=== PATIENT | female | born 1995 | race Asian ===

== ENCOUNTER 2017-11-04 05:36 | Inpatient (IN) | payer OTHER ==
[2017-11-04 07:00] LABS: HEMATOCRIT 42.3 % (36.0-47.0); HEMOGLOBIN 14.4 g/dl (12.0-16.0); MEAN CORPUSCULAR HEMOGLOBIN 28.6 pg (27.0-33.0); MEAN CORPUSCULAR VOLUME 84.1 fl (80.0-96.0); PLATELET COUNT, AUTOMATED 328 10^3/uL (150-450); RED BLOOD COUNT 5.03 10^6/uL (4.00-5.40); WHITE BLOOD COUNT 18.3 10^3/uL (4.0-10.0)
[2017-11-04] MEDS: LACTATED RINGER'S 1000 ML IV (08:00)
[2017-11-04] MEDS ORDERED: LR 1,000 ML IV (08:00)
[2017-11-04] MEDS ORDERED: FENTANYL 2MCG/ML ROPIVACAINE 0.2% IN 0.9% NACL 200ML IVBAG As Ordered (08:07)
[2017-11-04] MEDS: FENTANYL/ROPIVACAINE/NACL BAG 200 ML EPIDURAL (09:30)
[2017-11-04] MEDS ORDERED: NALOXONE INJ 0.4 MG/1 ML VIAL (J2310) IV (09:30)
[2017-11-04] MEDS ORDERED: EPIDURAL COMMENT XX (09:30)
[2017-11-04] MEDS ORDERED: REFRIGERATOR IV KEYS XX (09:30)
[2017-11-04] MEDS ORDERED: ONDANSETRON 4MG/2ML VIAL (J2405) IV (09:30)
[2017-11-04] MEDS ORDERED: diphenhydrAMINE INJ 50MG/ML VIAL (J1200) IV (09:30)
[2017-11-04] MEDS ORDERED: EPIDURAL/PCA KEYS XX (09:30)
[2017-11-04] MEDS: ePHEDrine SULFATE 25 MG/5 ML(5MG/ML) SYRINGE IV (09:52)
[2017-11-04] MEDS ORDERED: OXYTOCIN 30 UNITS IN 0.9% NaCl 500ML IV BAG (J2590) As Ordered (12:26)
[2017-11-04] MEDS: OXYTOCIN DRIP 30 UNITS in APPROPRIATE DILUENT 1 EA IV (13:52)
[2017-11-04] MEDS: RHOGAM 300 MCG (1500 IU) INJ (J2790) IM (15:58)
[2017-11-04] MEDS: MEASLES,MUMPS,RUBELLA VACCINE INJ (MMR-II) (90707) SC (15:59)
[2017-11-04] MEDS: DOCUSATE SODIUM 100 MG CAP PO (20:16)
[2017-11-05] MEDS: DOCUSATE SODIUM 100 MG CAP PO ×2 (09:35→21:54)
[2017-11-05] MEDS: PRENATAL VITAMINS CHEWABLE TABLET PO (09:35)
[2017-11-05] MEDS: MIRALAX *UNIT DOSE* 17GM PACKET PO (09:35)
[2017-11-05] MEDS: IBUPROFEN 800 MG TAB PO ×2 (09:38→21:55)
[2017-11-05] MEDS: ACETAMINOPHEN 500 MG TAB PO (22:52)
[2017-11-05] MEDS: DIBUCAINE 1% OINTMENT 30GM TOP (22:53)
[2017-11-06] MEDS: MIRALAX *UNIT DOSE* 17GM PACKET PO (08:14)
[2017-11-06] MEDS: DOCUSATE SODIUM 100 MG CAP PO (08:14)
[2017-11-06] MEDS: PRENATAL VITAMINS CHEWABLE TABLET PO (08:14)
[2017-11-06] MEDS: IBUPROFEN 800 MG TAB PO (08:15)
== END 2017-11-06 15:00 | disposition home or self-care (01) | DRG 775 ==
LOC: M LDO 05:36 → M LDI 06:10 → M OBS 15:56
PROVIDERS: Obstetrics & Gynecology
PROC: 10E0XZZ Delivery of Products of Conception, External Approach (ICD-10-PCS; principal; 2017-11-04)
PROC: 0KQM0ZZ Repair Perineum Muscle, Open Approach (ICD-10-PCS; 2017-11-04)
DX: O77.0 Labor and delivery complicated by meconium in amniotic fluid (principal); Z37.0 Single live birth; Z3A.39 39 weeks gestation of pregnancy; E66.9 Obesity, unspecified; O99.214 Obesity complicating childbirth; Z68.39 Body mass index [BMI] 39.0-39.9, adult; O69.82X0 Labor and delivery complicated by other cord entanglement, without compression, not applicable or unspecified; O70.0 First degree perineal laceration during delivery

== ENCOUNTER 2020-02-29 15:56 | Inpatient (IN) | payer OTHER ==
[~2020-02-29] VITALS: Ht 152.4 cm; Wt 98.4 kg
[~2020-02-29 15:56] MED LIST: IBUP-1114 PO; MAPA500T2 PO; PRENTAB9 PO
[2020-02-29 16:15] VITALS: BP 115/61
[2020-02-29] MEDS ORDERED: LR 1,000 ML IV ONE (16:45)
[2020-02-29 17:17] LABS: HEMATOCRIT 41.6 % (36.0-47.0); HEMOGLOBIN 13.5 g/dl (12.0-15.5); MEAN CORPUSCULAR HEMOGLOBIN 27.5 pg (27.0-33.0); MEAN CORPUSCULAR HGB CONC 32.5 g/dl (32.0-36.5); MEAN CORPUSCULAR VOLUME 84.7 fl (80.0-96.0); PLATELET COUNT, AUTOMATED 262 10^3/uL (150-450); RED BLOOD COUNT 4.91 10^6/uL (4.00-5.40); WHITE BLOOD COUNT 9.2 10^3/uL (4.0-10.0)
[2020-02-29 17:32] VITALS: BP 121/63
[2020-02-29] MEDS: miSOPROStol 50 MCG 1/2 TAB (S0191) PO SCH ×2 (18:13→22:18)
[2020-02-29 18:14] VITALS: BP 119/68
--- NOTE | 2020-02-29 19:02 | HPEPDOC ---
Obstetrical History & Physical General Date of Admission Feb 29, 2020 at 15:56 History of Present Illness 25-year-old 2, para 1 at 40 weeks 0 days estimated gestational age, presents for induction labor. She has had appropriate care. Reports active movements. Denies any vaginal bleeding, leakage fluid or c ontractions. 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 BREAST: . ABDOMEN: Gravid and non-tender to touch. FETUS: Is vertex (VTX) by sterile vaginal examination (SVE), fetus is vertex (VTX) by [employer]. HEART RATE: Regular rate and rhythm. LUNGS: Clear to auscultation (CTA). Vital Signs/I&O Vital Signs Date Time Temp Pulse Resp B/P (MAP) Pulse Ox O2 Delivery O2 Flow Rate FiO2 02/29/20 17:32 102 20 121/63 (82) 02/29/20 16:15 98.1 96 Room Air Laboratory Data 24H LABS Laboratory Tests 2 02/29/20 16:10: Serology Scanned Report Hepatitis B Testing 02/29/20 16:57: Nucleated Red Blood Cells % (auto) 0.0 CBC/BMP Laboratory Tests 02/29/20 16:57 Pertinent Laboratoy Data Blood Type: O+ RBC Antibody Screen: Negative HIV: Negative Hepatitis B: Negative Rapid Plasma Reagin: Nonreactive Rubella: Immune Chlamydia/Gonorrhea: Negative Group B Streptococcus: Negative Anatomy Ultrasound Placenta Location: Posterior Normal Anatomy: Yes Placenta Previa: No Vaginal Examination Dilation: None Cervical Consistency: Soft Cervical Position: Posterior Presentation: Cephalic presentation Assessment Variability: Moderate Accelerations: Positive Tocometer Contractions: No Assessment/Plan Assessment 25-year-old 1 at 40 weeks 0 days estimated gestational age by first trimester ultrasound, here for induction of labor. 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 Diet: Regular. Group B Streptococcus (GBS) negative. Labs and intravenous (IV) per unit protocol. Counseled on Pitocin and induction of labor (IOL). Start oral misoprostol 50 g daily for for induction labor Anticipate normal spontaneous delivery (). C-S as appropriate. ZENA SNYDER MD. Feb 29, 2020 19:01
[2020-02-29 19:17] VITALS: BP 117/77
[2020-02-29 20:42] VITALS: BP 105/59
[2020-02-29 22:18] VITALS: BP 107/61
[2020-03-01] VITALS (35 sets, daily range): BP systolic 82–136; BP diastolic 44–79
[2020-03-01] MEDS: miSOPROStol 50 MCG 1/2 TAB (S0191) PO SCH ×2 (02:00→02:49)
[2020-03-01] MEDS ORDERED: OXYTOCIN DRIP 30 UNITS in IV 1 EA IV SCH ×2 (10:15→19:38)
[2020-03-01] MEDS: LR 1,000 ML IV SCH ×3 (10:22→18:55)
[2020-03-01] MEDS ORDERED: FENTANYL 2MCG/ML ROPIVACAINE 0.2% IN 0.9% NACL 100ML IVBAG As Ordered ONE (12:57)
--- NOTE | 2020-03-01 15:21 | IPNPDOC ---
Obstetrical Progress Note Date of Service Mar 01, 2020 Subjective Patient is comfortable after epidural. She is reporting increasing pressure. Objective Vital Signs Date Time Temp Pulse Resp B/P (MAP) Pulse Ox O2 Delivery O2 Flow Rate FiO2 03/01/20 15:05 97.8 101 18 107/54 (71) 02/29/20 16:15 96 Room Air Assessment Variability: Moderate Accelerations: Positive Heart Rate Tracing: Category I Tocometer Contractions: Yes Frequency: regular Sterile Vaginal Examination Dilation: 5 cm Effacement (%): 80% Station: -2 Cervical Consistency: Soft Cervical Position: Anterior Postion/Presentation: Cephalic presentation Assessment and Plan Age: 25 : 2 Livin Status: Reassuring Group B Streptococcus: Negative Anticipate: Vaginal Delivery ZENA SNYDER MD. Mar 01, 2020 15:21
[2020-03-01] MEDS ORDERED: ONDANSETRON 4MG/2ML VIAL IV PRN (15:30)
[2020-03-01] MEDS ORDERED: NALOXONE INJ 0.4MG/1ML VIAL (J2310 PER 1MG) IV PRN (15:30)
[2020-03-01] MEDS ORDERED: EPIDURAL COMMENT XX SCH (15:30)
[2020-03-01] MEDS ORDERED: LACTATED RINGER'S 1000 ML IV PRN (15:30)
[2020-03-01] MEDS ORDERED: REFRIGERATOR IV KEYS XX PRN (15:30)
[2020-03-01] MEDS ORDERED: FENTANYL/ROPIVACAINE/NACL BAG 100 ML EPIDURAL SCH (15:30)
[2020-03-01] MEDS ORDERED: EPIDURAL/PCA KEYS XX PRN (15:30)
[2020-03-01] MEDS ORDERED: diphenhydrAMINE 50MG/ML VIAL (J1200) IV PRN (15:30)
[2020-03-01] MEDS: ePHEDrine SULFATE 25 MG/5 ML(5MG/ML) SYRINGE IV PRN ×3 (15:44→15:55)
--- NOTE | 2020-03-01 19:42 | DNPDOC ---
[facility] Delivery Note Delivery Note DATE OF DELIVERY: 03/01/2020 TIME OF : 1911 GENDER: Male. APGARS: 8 and 9. WEIGHT: 3790 grams or 8 pounds 6 ounces. LACERATIONS: Second-degree midline laceration ANESTHESIA: Epidural. ESTIMATED BLOOD LOSS: 300ml COUNTS: 5 laparotomy sponges accounted for prior to after delivery. One sharps r emoved delivery field. DELIVERY NOTE: On 03/01/2020 at 1912, a 25-year-old 2 now para 2, had a spontaneous vaginal delivery of viable male infant, Apgars 89. Weight was 3790 g or 8 lbs. 6 oz. Head was delivered occiput anterior (OA), followed by delivery of the shoulders and corpus. was handed to mom with a good cry. Cord was clamped times two and was cut by the father of baby under my direction. Placenta was then drained and delivered grossly intact. A premixed bag of 500 mL of normal saline with 30 units of Pitocin was then bolused along with uterine massage until the uterus was firm. On inspection,. There was a second-degree midline laceration which was repaired with 3-0 Vicryl. On reinspection, cervix, vagina, perineum was grossly intact and hemostatic. Mom and baby in recovery on stable condition. The couples decided to remain in son ZENA Mancilla MD. Mar 01, 2020 19:42
[2020-03-01] MEDS ORDERED: DIBUCAINE 1% OINTMENT 30GM TOP PRN (19:45)
[2020-03-01] MEDS ORDERED: MEASLES,MUMPS,RUBELLA VACCINE INJ (MMR-II) (90707) SC SCH (19:45)
[2020-03-01] MEDS ORDERED: MOM 30ML SUSPENSION UDC PO PRN (19:45)
[2020-03-01] MEDS ORDERED: METHYLERGONOVINE MALEATE 0.2 MG TAB PO PRN (19:45)
[2020-03-01] MEDS ORDERED: RHOGAM 300 MCG (1500 IU) INJ (J2790) IM SCH (19:45)
[2020-03-01] MEDS ORDERED: DOCUSATE SODIUM 100 MG CAP PO PRN (19:45)
[2020-03-01] MEDS ORDERED: ACETAMINOPHEN TAB 650MG DOSE (2X325MG) PO PRN (19:45)
[2020-03-01] MEDS ORDERED: ANUSOL HC CREAM 30GM TOP PRN (19:45)
[2020-03-01] MEDS ORDERED: IBUPROFEN 600MG TAB PO PRN (19:45)
[2020-03-01] MEDS ORDERED: ACETAMINOPHEN 500 MG TAB PO PRN (19:45)
[2020-03-01] MEDS: IBUPROFEN 800 MG TAB PO PRN (21:31)
[2020-03-02 06:00] VITALS: BP 108/50
[2020-03-02] MEDS: IBUPROFEN 800 MG TAB PO PRN ×2 (06:05→15:09)
--- NOTE | 2020-03-02 07:33 | IPNPDOC ---
Progress Note Date of Service: Mar 02, 2020 Day#: 1 Progress Note SUBJECT: Doing well without complaints. Ambulating, voiding and pain is well-c ontrolled. Reports minimal lochia. OBJECTIVE: VITAL SIGNS: Within normal limits, afebrile. Alert and oriented times three. Abdomen: Fundus firm at U-2. Soft, NTTP. ASSESSMENT: day #1 status post normal spontaneous vaginal delivery. Recovering in stable condition. PLAN: 1. Continue routine care 2. Discharge plans for tomorrow VS, I&O, 24H, Fishbone Vital Signs/I&O Vital Signs Date Time Temp Pulse Resp B/P (MAP) Pulse Ox O2 Delivery O2 Flow Rate FiO2 03/02/20 06:00 97.3 85 18 108/50 (69) 02/29/20 16:15 96 Room Air I&O- Last 24 Hours up to 6 AM 03/02/20 05:59 Intake Total 3685.4 ml Output Total 1400 ml Balance 2285.4 ml ZENA SNYDER MD. Mar 02, 2020 07:33
[2020-03-02] MEDS: PRENATAL VITAMINS CHEWABLE TABLET PO SCH (07:45)
[2020-03-02 17:40] VITALS: BP 121/67
[2020-03-03] MEDS: IBUPROFEN 800 MG TAB PO PRN (04:35)
[2020-03-03 06:00] VITALS: BP 120/64
--- NOTE | 2020-03-03 07:41 | IPNPDOC ---
Progress Note Date of Service: Mar 03, 2020 Day#: 2 Progress Note SUBJECT: Patient is a 25-year-old 2 now Para 2 status post uncomplicated spontaneous vaginal delivery with post 2nd degree laceration and repair, doing well day # 2. She has been ambulating, voiding spontaneously without issue and tolerating regular diet. Breast feeding without issue. Reports lochia is like a normal period. Patient is ambulating well. Reports some cramping with . Denies any pain. OBJECTIVE: VITAL SIGNS: Within normal limits, afebrile. GENERAL: No acute distress HEENT: Mucous membranes are moist BREAST: Nontender, no erythema CARDIOVASCULAR: RRR RESPIRATORY: Bilaterally clear ABDOMINAL EXAMINATION: Soft, appropriate tenderness, nondistended, fundus -2 PERINEUM: Intact, minimal lochia EXTREMITIES: no edema, nontender ASSESSMENT: Patient is a 25-year-old 2 now Para 2 status post uncomplicated spontaneous vaginal delivery with post 2nd degree laceration and repair, doing well day # 2. Vitals within normal limits, afebrile, hemodynamically stable with no evidence of infection. PLAN: 1. Discharge to home today. 2. Tylenol and Motrin for pain. 3. Encourage breast feeding and ambulation. 4. Routine PP visit in 6 weeks in clinic. 5. Discussed return precautions at length. VS, I&O, 24H, Fishbone Vital Signs/I&O Vital Signs Date Time Temp Pulse Resp B/P (MAP) Pulse Ox O2 Delivery O2 Flow Rate FiO2 03/02/20 06:00 97.3 85 18 108/50 (69) 02/29/20 16:15 96 Room Air I&O- Last 24 Hours up to 6 AM 03/02/20 05:59 Intake Total 3685.4 ml Output Total 1400 ml Balance 2285.4 ml Martina Mccall MD Mar 02, 2020 15:45
--- NOTE | 2020-03-03 07:41 | OBDS ---
[facility] Obstetrical Discharge Sum. Obstetrical Discharge Summary Date: Mar 03, 2020 : 2 Term: 2 Livin VDRL: Reactive Rh: Positive Rubella: Immune Labor IOL Delivery Sex: Male Weight: grams (3790) Anesthesia: Regional Anesthesia Episiotomy no A/P, Post Course List any complications Admission diagnosis: 1. Term . Discharge diagnosis: 1. Term Condition at Discharge: Good Discharge Instructions: Home Activity: Ad dean, pelvic rest Diet: Regular Medications: As prescribed at 36wks Follow-up: 6wks Other: None Course: Uncomplicated. Hospital Course: Patient was admitted for IOL which progressed without di fficulty with an uncomplicated . There were 2nd degree laceration which was repaired. course was uncomplicated with normal lochia, normal urination, ambulation, tolerating a diet, and controlled pain. Martina Mccall MD Mar 02, 2020 15:43
[2020-03-03] MEDS: PRENATAL VITAMINS CHEWABLE TABLET PO SCH (07:42)
--- NOTE | 2020-03-04 12:09 | IPN ---
DATE OF SERVICE: This patient and requested circumcision of their male . After discussing risks and benefits of circumcision, the medical and nonmedical indications, the penile block and aftercare expressed understanding of penile block aftercare and bleeding, signed the consent form. All questions were answered. 20-minute discussion. We await the clearance by the forging press lever tender.
== END 2020-03-03 11:45 | disposition home or self-care (01) | DRG 807 ==
LOC: M LDI 15:56 → M OBS 03-01 21:13
PROVIDERS: ADMIT Obstetrics & Gynecology; ATTEND Obstetrics & Gynecology
PROC: 3E033VJ Introduction of Other Hormone into Peripheral Vein, Percutaneous Approach (ICD-10-PCS; 2020-02-29)
PROC: 3E0DXGC Introduction of Other Therapeutic Substance into Mouth and Pharynx, External Approach (ICD-10-PCS; 2020-02-29)
PROC: 10E0XZZ Delivery of Products of Conception, External Approach (ICD-10-PCS; principal; 2020-03-01)
PROC: 0KQM0ZZ Repair Perineum Muscle, Open Approach (ICD-10-PCS; 2020-03-01)
DX: O48.0 Post-term pregnancy (principal); Z37.0 Single live birth; Z3A.40 40 weeks gestation of pregnancy; O70.1 Second degree perineal laceration during delivery